=== PATIENT | female | born 1975 | race Caucasian/White ===

== ENCOUNTER → 2023-10-25 | Outpatient (CLI) | payer OTHER ==
[2023-10-25 13:23] VITALS: BP 129/83; PULSE 80; RESP 16; TEMP 98
--- NOTE | 2023-10-25 13:49 | P.SLEEP ---
History of Present Illness DATE: 10/25/2023 CONSULTATION/NEW PATIENT EVALUATION HISTORY OF PRESENT ILLNESS/SLEEP-WAKE EVALUATION: 48-year-old lady had been e valuated in the sleep center for excessive daytime sleepiness and possible obstructive sleep apnea hypopnea syndrome. SLEEP SCHEDULE: Usually sleep schedule from 10 PM to 6 AM 7 days a week. FALLING ASLEEP: No problems with falling asleep. DURING SLEEP: Patient snores and wakes up from sleep up to 4 times. No history of hypnogogical hallucinations, sleep paralysis, or cataplexy. DURING THE DAY/WAKE STATE: In the morning patient wake up tired, has difficulties to pay attention, has problems with memory and concentration. Blessing sleepiness scale is increased to 14. Patient usually does not take naps. PAST MEDICAL HISTORY: Hypothyroidism. PAST SURGICAL HISTORY: Partial hysterectomy. MEDICATIONS: Please see below. SOCIAL HISTORY: Please see below. FAMILY HISTORY: Sleep apnea by her father, positive history of stroke, heart problems, hypertension, cancer, diabetes. REVIEW OF SYSTEMS: Snoring, multiple awakenings from sleep, sleepiness during the day. No fevers. No double vision. No recent chest pain. No shortness of breath. No abdominal pain. No bleeding episodes. No blood in urine. No seizure episodes. PHYSICAL EXAMINATION: GENERAL: A pleasant patient without any distress. VITAL SIGNS: Please see below, weight 212 pounds, body mass index 38.7. HEENT: PERRLA, EOMI. Evaluation of oropharynx showed tongue protrudes midline, low position of soft palate Mallampati 23. NECK: Supple. No JVD. Thyroid is not palpable. 15.5 inches in circumference. LUNGS: Clear to percussion and to auscultation. Good air exchange. No wheezing or rhonchi. HEART: S1, S2 regular. No murmurs, gallops or rubs. ABDOMEN: Soft and nontender. Bowel sounds are present. No organomegaly appreciated. EXTREMITIES: No clubbing or cyanosis. BOAT HOP: Awake, alert, and oriented x3. Cranial nerves 2 to 7 intact. There is no fasciculation or atrophy noted. No focal deficits observed. ASSESSMENT: 1. Snoring, multiple awakenings from sleep, moderately low position of soft palate, sleepiness. Possible obstructive sleep apnea hypopnea syndrome. 2. Significant sleepiness with Blessing Sleepiness Scale 14 dictate necessity to include hypersomnia and narcolepsy type II in differential diagnosis. 3. Obesity, BMI 38.7. 4. Hypothyroidism. 5 status post partial hysterectomy. PLAN: 1. Polysomnography for evaluation of patient's breathing during sleep. MSLT if sleep study will be negative for obstructive sleep apnea hypopnea syndrome. 2. Following plan after reading sleep study. 3. Preferable position during sleep on the side. 4. No driving if patient feels any sleepiness. Patient is aware of civil and criminal liability for unsafe driving. 5. Sleep hygiene with regular sleep time for at least 7.5-8 hours. 6. Watching and losing weight. Thank you very much for referring this patient for consultation. Sincerely, Harmeet Norman MD, PhD, FAASM. Diplomat of [employer], Sleep Medicine Board by [employer] Station Engineer Chief of [facility] [place] Past Medical History Past Medical History: Thyroid Disorder History of Any Multi-Drug Resistant Organisms: None Reported Past Surgical History: Appendectomy, Hysterectomy Additional Past Surgical History / Comment(s): c section x1 Past Psychological History: No Psychological Hx Reported Smoking Status: Never smoker Past Alcohol Use History: Occasional - Past Family History Father Family Medical History: Coronary Artery Disease (CAD), Diabetes Mellitus, Hyperlipidemia, Hypertension, Sleep Apnea/CPAP/BIPAP Additional Family Medical History / Comment(s): arthritis (unknown type), snoring, insomnia Mother Family Medical History: Cancer Medications and Allergies Home Medications Medication Instructions Recorded Confirmed Type Levothyroxine Sodium [Levo-T] 75 mcg PO DAILY 10/25/23 10/25/23 History Progesterone, Micronized 100 mg PO DAILY 10/25/23 10/25/23 History [Progesterone] Physical Exam Vitals: Vital Signs Temp Pulse Resp BP Pulse Ox 10/25/23 13:22 98 F 80 16 129/83 97 Intake and Output 10/24/23 10/25/23 10/25/23 22:59 06:59 14:59 Other: Weight 96.162 kg Sleep Note - Sleep Data ESS Total: 14 - Sleep Note Sleep Note: Temperature: 98 F Pulse Rate: 80 Respiratory Rate: 16 Blood Pressure: 129/83 SpO2: 97 Height: 5 ft 2 in Weight: 96.162 kg BMI: Neck Circumference: 15.5
== END | disposition home or self-care (01) ==
LOC: 3 N SLEEP 13:08
PROVIDERS: ATTEND Internal Medicine
DX: R06.83 Snoring (principal); E03.9 Hypothyroidism, unspecified; E66.9 Obesity, unspecified; Z68.38 Body mass index [BMI] 38.0-38.9, adult; Z90.711 Acquired absence of uterus with remaining cervical stump
CPT/HCPCS: 99202

== ENCOUNTER → 2024-09-16 | Outpatient (CLI) | payer OTHER ==
--- NOTE | 2024-09-18 08:24 | MM ---
Reason for Exam: Screening (asymptomatic). Last mammogram was performed 3 year(s) and 0 month(s) ago. Patient History: Menarche at age 12. First Full-Term at age 35. Late child-bearing (after 30). Hysterectomy at age 37. Mother had breast cancer under age 50. Risk Values: Kamryn 5 year model risk: 2.0%. NCI Lifetime model risk: 17.3%. Prior Study Comparison: 03/16/2017 Bilateral Screening Mammogram, [facility]. 07/09/2018 Bilateral Screening Mammogram, [facility]. 07/27/2020 Bilateral Screening Mammogram, [facility]. 09/29/2021 Bilateral Screening Mammogram, [facility]. Tissue Density: There are scattered areas of fibroglandular density. Findings: Analyzed By CAD. Right breast: There is no suspicious group of microcalcifications or new suspicious mass. Left breast: There is no suspicious group of microcalcifications or new suspicious mass. Overall Assessment: Negative, BI-RAD 1 Management: Screening Mammogram of both breasts in [address] [facility] will attempt to contact patient to return for supplemental views and ultrasound if indicated. Patient should continue monthly self-breast exams. A clinical breast exam by your physician is recommended on an annual basis. This exam should not preclude additional follow-up of suspicious palpable abnormalities. Note on Kamryn scores and lifetime risk: 1. A Kamryn score greater than 3% is considered moderate risk. If this is the case, consider specialist referral to assess eligibility for a risk reducing agent. 2. If overall lifetime risk for the development of breast cancer is 20% or higher, the patient may qualify for future screening with alternating mammogram and breast MRI. [facility], , 09/18/2024 8:21 AM. Electronically signed and approved by: Shan Barrow DO
== END | disposition home or self-care (01) ==
LOC: RADMAMWWP 10:56
PROVIDERS: ATTEND Family Medicine
DX: Z12.31 Encounter for screening mammogram for malignant neoplasm of breast (principal); R92.323 Mammographic fibroglandular density, bilateral breasts; Z80.3 Family history of malignant neoplasm of breast
CPT/HCPCS: 77067